=== PATIENT | male | born 1965 | race Caucasian/White ===

== ENCOUNTER 2020-03-27 09:51 | Emergency (ER) | payer BC ==
[2020-03-27 10:15] VITALS: BP 140/92; PULSE 86; TEMP 98.5; BMI 28.3
[2020-03-27] MEDS ORDERED: BAMLANIVIMAB 700 MG in SODIUM CHLORIDE 250 ML IVPB ONE (10:26)
[2020-03-27 11:58] LABS: BASO % 0.7 % (0-2.0); EOS % 0.4 % (0-4.5); HEMATOCRIT 46.7 % (35.4-49); HEMOGLOBIN 16.1 GM/dL (11.7-16.9); LYMPH % 20.2 % (8-40); MCHC 34.4 g/dl (32.0-35.9); MEAN CELL VOLUME 90.1 fl (80-96); MEAN PLT VOLUME 9.6 fl (7.5-11.1); MONO % 13.5 % (3.8-10.2); NEUT % 65.2 % (42.8-82.8); PLATELET COUNT 132 K/MM3 (134-434); RBC 5.18 M/mm3 (4.00-5.60); RDW 13.1 % (11.9-15.9); WHITE BLOOD COUNT 5.9 K/mm3 (4.0-10.0)
[2020-03-27 12:08] LABS: POTASSIUM 4.1 mmol/L (3.5-5.1)
[2020-03-27 12:10] LABS: CALCIUM 9.2 mg/dL (8.5-10.1)
[2020-03-27 12:11] LABS: ALBUMIN 3.9 g/dl (3.4-5.0); BLOOD UREA NITROGEN 17.8 mg/dL (7-18)
[2020-03-27 12:15] LABS: BILIRUBIN,TOTAL 0.9 mg/dL (0.2-1)
[2020-03-27 12:16] LABS: TOT PROT 7.3 g/dl (6.4-8.2)
== END 2020-03-27 14:10 | disposition home or self-care (01) ==
LOC: JER 09:51
DX: U07.1 COVID-19 (principal)
CPT/HCPCS: 36415; 71046-TC-FY; 80053; 85025; 99284-25; M0239; Q0239